=== PATIENT | female | born 1945 | race Caucasian/White ===

== ENCOUNTER → 2023-07-09 | Outpatient (CLI) | payer MEDICARE, SELFPAY ==
--- NOTE | 2023-07-09 18:30 | RAD_ITS ---
STUDY: X-RAY - CERVICAL SPINE REASON FOR EXAM: Female, 77 years old. PAIN TECHNIQUE: 3 view(s) of the cervical spine were obtained. COMPARISON: None FINDINGS: There are degenerative changes of the anterior atlantoaxial articulation. Normal odontoid process. Normal cervical lordosis. There is multi-level endplate spondylosis. There is multi-level degenerative disc disease with multilevel disc space narrowing. Multilevel bilateral apophyseal hypertrophy. The soft tissue structures are unremarkable. Possible osteopenia. RAD/Cerv Spine 2 or 3 Views IMPRESSION: Multilevel degenerative disease with no acute fracture or subluxation. Electronically Signed: Symone Rose MD at 1:07 EST ,
--- NOTE | 2023-07-09 18:30 | RAD_ITS ---
STUDY: X-RAY - LUMBAR SPINE REASON FOR EXAM: Female, 77 years old. PAIN TECHNIQUE: 2 view(s) of the lumbar spine were obtained. COMPARISON: None FINDINGS: Normal lumbar lordosis. There is no substantial scoliosis. There is a normal alignment of the vertebrae. Normal vertebral bodies and endplates. Normal disc space heights. The soft tissue structures are unremarkable. RAD/Lumbar Spine 2 or 3 Views IMPRESSION: No acute bony injury of the lumbar spine. Electronically Signed: Alex Driver DO at 22:24 EST ,
--- NOTE | 2023-07-09 18:30 | RAD_ITS ---
INDICATION: PAIN EXAMINATION/TECHNIQUE: X-RAY - XR Spine Thoracic 2 Views COMPARISON: FINDINGS: VERTEBRAE: Preserved vertebral body height. Mild degenerative spurring/bridging osteophytes throughout the mid thoracic levels. No fracture. No spondylolisthesis. Preservation of the normal thoracic kyphosis. No significant facet arthropathy. DISCS: Disc spaces are maintained. INCLUDED CHEST/ABDOMEN: No acute abnormalities. There is a right shoulder prosthesis. RAD/Thoracic Spine 3 Views IMPRESSION: Degenerative vertebral changes. Electronically Signed: Alex Driver DO at 22:33 EST ,
== END | disposition home or self-care (01) ==
PROVIDERS: PCP Nurse Practitioner Primary Care; Referring Provider Anesthesiology Pain Medicine; Visit Provider Anesthesiology Pain Medicine
DX: M50.30 Other cervical disc degeneration, unspecified cervical region (principal); M51.34 Other intervertebral disc degeneration, thoracic region; M51.37 Other intervertebral disc degeneration, lumbosacral region
CPT/HCPCS: 72040; 72072; 72100

== ENCOUNTER → 2023-10-14 | Outpatient (CLI) | payer MEDICARE, SELFPAY ==
--- OUTSIDE RECORDS SUMMARY | 2023-10-14 11:49 | XMS RPT_ITS | CCD ---
Author Name Unknown Address [address] [place] [address] Organization [facility] Care Team Providers Care Assistant Producer Name Role Phone JASWINDER CLINICAL EDUCATION SPECIALIST-GARLAND MAKER, NATHALIA S Primary Care Physicia n Castro PT, Angelina Unavailable Unavailable MERAZ CLINICAL EDUCATION SPECIALIST-GARLAND MAKER, ERROL Attending Unavailab le JASWINDER CLINICAL EDUCATION SPECIALIST-GARLAND MAKER, NATHALIA S Primary Care Unava ilable JENNY HERNANDEZ, DR PANIAGUA Attending Unavailable JASWINDER CLINICAL EDUCATION SPECIALIST-GARLAND MAKER, NATHALIA S Primary Care Unava ilable JASWINDER CLINICAL EDUCATION SPECIALIST-GARLAND MAKER, NATHALIA S Attending Unava ilable JASWINDER CLINICAL EDUCATION SPECIALIST-GARLAND MAKER, NATHALIA S Primary Care Unava ilable JASWINDER CLINICAL EDUCATION SPECIALIST-GARLAND MAKER, NATHALIA S Attending Unava ilable JASWINDER CLINICAL EDUCATION SPECIALIST-GARLAND MAKER, NATHALIA S Primary Care Unava ilable JASWINDER CLINICAL EDUCATION SPECIALIST-GARLAND MAKER, NATHALIA S Attending Unava ilable JASWINDER CLINICAL EDUCATION SPECIALIST-GARLAND MAKER, NATHALIA S Primary Care Unava ilable JASWINDER CLINICAL EDUCATION SPECIALIST-GARLAND MAKER, NATHALIA S Primary Care Unava ilable CORNELL CLINICAL EDUCATION SPECIALIST-GARLAND MAKER, GRACY Gonsales Attending Monserrat vailable JASWINDER CLINICAL EDUCATION SPECIALIST-GARLAND MAKER, NATHALIA S Primary Care Unava ilable LITO CLINICAL EDUCATION SPECIALIST-GARLAND MAKER, GRACIELA Santoyo Attending Unav ailable JASWINDER CLINICAL EDUCATION SPECIALIST-GARLAND MAKER, NATHALIA S Primary Care Unava ilable CORNELL CLINICAL EDUCATION SPECIALIST-GARLAND MAKER, GRACY Gonsales Attending Monserrat vailable Allergies Allergy Classification Reported Allergen(s) Allergy Type Date of Onset Reaction(s) Facility (12 sources) Erythromycin; Translations: [erythromycin] Drug Allergy [facility] (12 sources) Grass Allergy to substance Nasal congestion (finding) [facility] (11 sources) Ibuprofen; Translations: [ibuprofen] Drug Allergy [facility] (8 sources) pollen-tree Allergy to substance Typical [facility] Medications Current Medications Medication Drug Class(es) Dates Sig (Normalized) Sig (Original) [id number] 200 actuat albuterol 0.09 mg/actuat metered dose inhaler (12 sources) beta2-Adrenergic Agonist Start: 01-28-2023 take 2 puff(s) by inhalation every six hours as needed for wheezing ProAir HFA MDI (90 mcg/inh) inhalation aerosol 2 puff(s), Inhalation, q6h, PRN as needed for wheezing, filling in lieu of pcp, # 1 EA, 0 Refill(s), Pharmacy: [facility]/pharmacy #[id number], 162.6, cm, 12/12/22 9:04:00 EDT, Height, kg, 12/12/22 9:04:00 EDT, Dosing Weight Start Date: 01/28/23 Status: Ordered Completed/Discontinued Medications Medication Drug Class(es) Dates Sig (Normalized) Sig (Original) HYDROmorphone hydrochloride 4 mg oral tablet (11 sources) Opioid Agonist Start: 04-24-2023 HYDROmorphone 4 mg oral tablet Dose : 2 mg = 0.5 tab(s), Oral, q8h, PRN for pain, 0 Refill(s), 64.6 Start Date: 04/24/23 Status: Ordered Problems Active Problems Problem Classification Problem Date Documented Da te Episodic/Chronic Asthma (12 sources) Asthma 05-11-2017 Chronic Calculus of urinary tract (2 sources) Unspecified renal colic; Translations: [Unspecified renal colic] Onset: 09-18-2023 Episodic Deficiency and other anemia (12 sources) Anemia 05-13-2019 Episodic Diabetes mellitus without complication (14 sources) Type 2 diabetes mellitus; Translations: [Type 2 diabetes mellitus without complications] Onset: 07-30-2023 05-13-2019 Chronic Disorders of lipid metabolism (13 sources) Hyperlipidemia; Translations: [Hyperlipidemia, unspecified] 05-11-2017 Chronic E Codes: Fall (1 source) Fall; Translations: [Unspecified fall, initial encounter] Onset: 03-09-2022 Episodic Essential hypertension (13 sources) Hypertensive disorder; Translations: [Essential hypertension] 04-27-2021 Chronic Genitourinary symptoms and ill-defined conditions (14 sources) Urinary incontinence; Translations: [Unspecified urinary incontinence] Onset: 09-18-2023 04-19-2020 Chronic Glaucoma (12 sources) Glaucoma 05-20-2017 Chronic Mood disorders (12 sources) Depressive disorder 09-15-2020 Chronic Mycoses (2 sources) Onychomycosis of toenails 05-22-2023 Episodic Nausea and vomiting (1 source) Vomiting; Translations: [Vomiting, unspecified] Onset: 07-01-2021 Episodic Other connective tissue disease (12 sources) Muscle pain 01-17-2021 Episodic Other connective tissue disease (12 sources) Myofascial pain syndrome 04-28-2021 Episodic Other connective tissue disease (12 sources) Recurrent falls 09-15-2020 Episodic Other ear and sense organ disorders (5 sources) Impacted cerumen 02-20-2021 Episodic Other nervous system disorders (12 sources) Impairment of balance 09-15-2020 Episodic Other non-traumatic joint disorders (5 sources) Pain in elbow 12-27-2020 Episodic Peripheral and visceral atherosclerosis (12 sources) Peripheral vascular disease 09-21-2019 Chronic Residual codes; unclassified (12 sources) Chronic back pain 12-28-2020 Episodic Retinal detachments; defects; vascular occlusion; and retinopathy (12 sources) Age related macular degeneration 09-21-2019 Chronic Spondylosis; intervertebral disc disorders; other back problems (10 sources) 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-2021 Chronic Spondylosis; intervertebral disc disorders; other back problems (4 sources) Spinal stenosis of lumbar region 02-06-2023 Episodic Thyroid disorders (13 sources) Hypothyroidism; Translations: [Hypothyroidism, unspecified] 05-11-2017 Chronic Unclassified (12 sources) Basal cell carcinoma 05-13-2019 Unclassified (19 sources) Patient encounter status 04-27-2021 Past or Other Problems Problem Classification Problem Date Documented Da te Episodic/Chronic Fracture of upper limb (5 sources) Closed fracture proximal humerus, neck Onset: 08-26-2016 05-28-2017 Episodic Results Test Name Value Interpretation Reference Range Facil ity Vital Signs Date Time Vital Sign Value Performing Clinician Faci lity 03-09-2022 15:55-0400 Body temperature 98.78 [degF] CALI RICHARDS MD [facility] 03-09-2022 15:55-0400 Diastolic blood pressure 67 mm[Hg] CALI RICHARDS MD [facility] 03-09-2022 15:55-0400 Heart rate 63 /min CALI RICHARDS MD [facility] 03-09-2022 15:55-0400 Respiratory rate 16 /min CALI RICHARDS MD [facility] 03-09-2022 15:55-0400 Systolic blood pressure 125 mm[Hg] CALI RICHARDS MD [facility] 07-01-2021 20:38-0400 Diastolic blood pressure 78 mm[Hg] CALI RICHARDS MD [facility] 07-01-2021 20:38-0400 Heart rate 58 /min CALI RICHARDS MD [facility] 07-01-2021 20:38-0400 Respiratory rate 16 /min CALI RICHARDS MD [facility] 07-01-2021 20:38-0400 Systolic blood pressure 138 mm[Hg] CALI RICHARDS MD [facility] 07-01-2021 18:40-0400 Body temperature 97.88 [degF] CALI RICHARDS MD [facility] 07-01-2021 18:40-0400 Diastolic blood pressure 84 mm[Hg] CALI RICHARDS MD [facility] 07-01-2021 18:40-0400 Heart rate 64 /min CALI RICHARDS MD [facility] 07-01-2021 18:40-0400 Respiratory rate 16 /min CALI RICHARDS MD [facility] 07-01-2021 18:40-0400 Systolic blood pressure 151 mm[Hg] CALI RICHARDS MD [facility] Encounters Encounter Date Encounter Type Care Provider Facility Start: 09-18-2023 ambulatory NATHALIA SALMERON CLINICAL EDUCATION SPECIALIST-GARLAND MAKER Facility:B Start: 09-18-2023 End: 09-22-2023 Outreach Lab GRACIELA MORSE CLINICAL EDUCATION SPECIALIST-GARLAND MAKER [facility] Start: 07-30-2023 End: 08-04-2023 ambulatory NATHALIA S JASWINDER CLINICAL EDUCATION SPECIALIST-GARLAND MAKER Facility:B Start: 07-30-2023 End: 08-03-2023 Outreach Lab NATHALIA SAN CLINICAL EDUCATION SPECIALIST-GARLAND MAKER [facility] Start: 04-24-2023 End: 04-25-2023 ambulatory NATHALIA S JASWINDER CLINICAL EDUCATION SPECIALIST-GARLAND MAKER Facility:B Start: 04-24-2023 End: 04-24-2023 Patient encounter procedure GRACY CORNELL CLINICAL EDUCATION SPECIALIST-GARLAND MAKER [facility] Start: 04-03-2023 ambulatory NATHALIA S WITM ER CLINICAL EDUCATION SPECIALIST-GARLAND MAKER Facility:B Start: 02-06-2023 End: 02-07-[address] ARCELIA ALVARADO MD Facility:A Start: 02-06-2023 End: 02-06-[address] ARCELIA ALVARADO MD [facility] Start: 12-12-2022 End: 12-13-2022 ambulatory ERROL MERAZ CLINICAL EDUCATION SPECIALIST-GARLAND MAKER Facility:A Start: 12-12-2022 End: 12-12-2022 Patient encounter procedure ERROL MERAZ CLINICAL EDUCATION SPECIALIST-GARLAND MAKER [facility] Start: 11-23-2022 End: 11-24-2022 ambulatory NATHALIA SAN CLINICAL EDUCATION SPECIALIST-GARLAND MAKER Facility:B Start: 11-23-2022 End: 11-23-2022 Patient encounter procedure NATHALIA SAN CLINICAL EDUCATION SPECIALIST-GARLAND MAKER [facility] Start: 11-20-2022 End: 11-21-2022 ambulatory NATHALIA SAN CLINICAL EDUCATION SPECIALIST-GARLAND MAKER Facility:B Start: 11-20-2022 End: 11-20-2022 Patient encounter procedure NATHALIA SAN CLINICAL EDUCATION SPECIALIST-GARLAND MAKER [facility] Start: 03-28-2022 End: 03-28-[address] ARCELIA ALVARADO MD [facility] Start: 03-09-2022 End: 03-09-2022 Emergency department patient visit CALI RICHARDS MD [facility] Start: 01-25-2022 End: 01-25-2022 Patient encounter procedure ELMER FERNANDEZ CLINICAL EDUCATION SPECIALIST-BODY PIERCER [facility] Start: 07-01-2021 End: 07-01-2021 Emergency department patient visit CALI RICHARDS MD [facility] Start: 06-21-2021 End: 06-21-[address] ARCELIA ALVARADO MD [facility] Procedures Date Procedure Procedure Detail Performing Clinician Start: 11-20-2018 Injection of trigger points DR ARCELIA ALVARADO MD Start: 04-17-[address] eroid injection DR ARCELIA ALVARADO MD Start: 03-03-[address] ARCELIA ALVARADO MD Immunizations Immunization Date Immunization Notes Care Provider Fa [facility] 05-22-2023 influenza, high dose seasonal, preservative-free; Translations: [Fluad Quadrivalent PF ] NATHALIA SAN CLINICAL EDUCATION SPECIALIST-GARLAND MAKER [facility] 02-16-2022 SARS-CoV-2 mRNA (anggkzofivz-rhkb-hwnbnf e) vaccine NATHALIA SAN CLINICAL EDUCATION SPECIALIST-GARLAND MAKER [facility] 06-08-2021 influenza virus vacc ine, unspecified formulation NATHALIA SAN CLINICAL EDUCATION SPECIALIST-GARLAND MAKER [facility] 06-08-2021 SARS-CoV-2 mRNA (tozinameran) vaccine NATHALIA SAN CLINICAL EDUCATION SPECIALIST-GARLAND MAKER [facility] 11-30-2020 SARS-CoV-2 mRNA (tozinameran) vaccine NATHALIA SAN CLINICAL EDUCATION SPECIALIST-GARLAND MAKER [facility] 11-08-2020 SARS-CoV-2 mRNA (tozinameran) vaccine NATHALIA SAN CLINICAL EDUCATION SPECIALIST-GARLAND MAKER [facility] 09-05-2019 influenza virus vacc ine, unspecified formulation DR ARCELIA ALVARADO MD [facility] 07-27-2018 influenza virus vacc ine, unspecified formulation DR ARCELIA ALVARADO MD [facility] 05-01-2017 influenza virus vacc ine, unspecified formulation DR ARCELIA ALVARADO MD [facility] 04-26-2017 influenza virus vacc ine, unspecified formulation DR ARCELIA ALVARADO MD [facility] 05-02-2016 influenza virus vacc ine, unspecified formulation DR ARCELIA ALVARADO MD [facility] 08-01-2015 pneumococcal conjuga te vaccine, [address] ARCELIA ALVARADO MD [facility] 06-25-2015 influenza virus vacc ine, unspecified formulation DR ARCELIA ALVARADO MD [facility] 06-28-2014 influenza virus vacc ine, unspecified formulation DR ARCELIA ALVARADO MD [facility] 06-15-2013 pneumococcal polysaccharide vaccine, [address] ARCELIA ALVARADO MD [facility] 06-05-2012 influenza virus vacc ine, unspecified formulation DR ARCELIA ALVARADO MD [facility] 01-28-2009 zoster vaccine, live DR ARCELIA ALVARADO MD [facility] 08-20-2007 tetanus toxoid, redu [place] diphtheria toxoid, and acellular pertussis vaccine, adsorbed DR ARCELIA ALVARADO MD [facility] Payers Date Payer Category Payer Unknown [id number] 1945 Unknown [id number] [id number] [id number] 1945 Unknown [id number] 2.16.8 [id number] 1945 Unknown [id number] 2.16.8 [id number] 1945 Unknown [id number] 2.16.8 [id number] 1945 Unknown [id number] 2.16.8 [id number] 1945 Unknown [id number] 2.16.8 [id number] 1943 Unknown [id number] 2.16.8 [id number] 1945 Unknown [id number] 2.16.8 [id number] Social History Date Type Detail Facility Start: 11-20-2018 Never smoked t obacco ([facility]) [facility] Sex Assigned At Female [facility] Functional Status Date Assessment Result Facility 03-09-2022 Functional Status Ambulation in [facility] Mental Status Date Assessment Result Facility 03-09-2022 Mental Status Orientation Oriented x 4 [facility] Clinical Notes 07-01-2021 to 09-20-2023 LaboratoryRadiologyLaboratoryRadiologyRadiologyRadiologyRadiology Note Date & Type Note Facility 09-20-2023 Note . MICRO - Microbiology PROCEDURE: Urine Culture [*1] SOURCE: Urine, Clean Catch BODY SITE: COLLECTED DATE/TIME: 09/18/2023 16:49 EST RECEIVED DATE/TIME: 09/18/2023 19:33 EST START DATE/TIME: 09/18/2023 19:33 EST FREE TEXT SOURCE: PRELIMINARY REPORTS Preliminary Report [] Verified Date/Time/Personnel: 09/20/2023 08:30 EST >100,000 cfu/ml Escherichia coli CADY to follow Preliminary Report [] Verified Date/Time/Personnel: 09/19/2023 10:48 EST Culture results pending. Performing Locations *1: This test was performed at: [facility], [address] [place] [address], [facility] , [facility] ([place]) 11-23-2022 Note ORIGINAL EXAMINATION: BONE DENSITOMETRY 11/23/2022 1:51 pm TECHNIQUE: A bone density dual x-ray absorptiometry (DEXA) scan was performed of the lumbar spine and left hip. COMPARISON: 05/09/2020. HISTORY: ORDERING SYSTEM PROVIDED HISTORY: Reason for Exam: Osteoporosis Screening FINDINGS: T Score Left Femoral Neck: -2.1 Left Femoral Neck: 0.614 (g/cm2) T Score Left Hip: -1.7 Left Hip: 0.737 (g/cm2) T Score Lumbar Spine: -1.1 Lumbar Spine: 0.922 (g/cmd2) BMD change from previous hip:-6.9% BMD change from previous lumbar Spine:-6.3% FRAX: 10 year fracture risk assessment Major osteoporotic fracture: 23% Hip fracture: 7.6% IMPRESSION: Osteopenia by WHO criteria. *By the World Health Organization criteria: (Comparing with young normal sex matched population) - Normal: T-score at or above -1 SD (standard deviation) - Osteopenia: T-score between -1 and -2.5 SD - Osteoporosis: T-score at or below -2.5 SD Interpreted by: Robert Delgado DO Preliminary Report By: Robert Delgado DO Electronically signed By Robert Delgado DO Dictated Date: 11/23/2022 2:00:48 PM Prelim Date: 11/23/2022 2:02:30 PM Sign Date: 11/23/2022 2:02:30 PM Ordering Provider: [facility] 11-23-2022 Note ORIGINAL EXAMINATION: BONE DENSITOMETRY 11/23/2022 1:51 pm TECHNIQUE: A bone density dual x-ray absorptiometry (DEXA) scan was performed of the lumbar spine and left hip. COMPARISON: 05/09/2020. HISTORY: ORDERING SYSTEM PROVIDED HISTORY: Reason for Exam: Osteoporosis Screening FINDINGS: T Score Left Femoral Neck: -2.1 Left Femoral Neck: 0.614 (g/cm2) T Score Left Hip: -1.7 Left Hip: 0.737 (g/cm2) T Score Lumbar Spine: -1.1 Lumbar Spine: 0.922 (g/cmd2) BMD change from previous hip:-6.9% BMD change from previous lumbar Spine:-6.3% FRAX: 10 year fracture risk assessment Major osteoporotic fracture: 23% Hip fracture: 7.6% IMPRESSION: Osteopenia by WHO criteria. *By the World Health Organization criteria: (Comparing with young normal sex matched population) - Normal: T-score at or above -1 SD (standard deviation) - Osteopenia: T-score between -1 and -2.5 SD - Osteoporosis: T-score at or below -2.5 SD Interpreted by: Robert Delgado DO Preliminary Report By: Robert Delgado DO Electronically signed By Robert Delgado DO Dictated Date: 11/23/2022 2:00:48 PM Prelim Date: 11/23/2022 2:02:30 PM Sign Date: 11/23/2022 2:02:30 PM Ordering Provider: NATHALIA [facility] 03-09-2022 Hospital Discharge instructions Patient Education 03/09/2022 18:24:14 Fall, Uncertain Cause Fall with Uncertain Cause You have had a fall today. But the cause of your fall is not certain. Falls can happen due to slipping, tripping or losing your balance. A fall can also happen from a fainting spell or seizure. While a fall can happen for a simple reason (tripping over something), falls in elderly people are often caused by a combination of things: Age-related decline in function with worsening balance, stability, vision, and muscle strength Chronic illness, such as heart arrhythmias, heart valve disease, vascular disease, COPD, diabetes, strokes, or arthritis Shoes that do not give much support and make you prone to slip or slide Anemia or low blood pressure Effects or side effects of medicines Dehydration or recent use of alcohol Environmental hazards, such as uneven or slippery ground, unfamiliar place, obstacles, uneven surfaces, or slippery ground Situational factors (related to the activity being done, such as rushing to the bathroom) Because the cause of your fall today is not certain, it is possible that a fainting spell or seizure was the cause. This means that it could happen again, without warning. If you fall again, without a cause, then you should return to this facility promptly to have further tests. Otherwise, follow up with your healthcare provider as explained below. It is normal to feel sore and tight in your muscles and back the next day, and not just the muscles you initially injured. Remember, all the parts of your body are connected, so while initially one area hurts, the next day another may hurt. Also, when you injure yourself, it causes inflammation, which then causes the muscles to tighten up and hurt more. After the initial worsening, it should gradually improve over the next few days. However, more severe pain should be reported. Even without a definite head injury, you can still get a concussion. Concussions and even bleeding can still happen, especially if you have had a recent injury or take blood thinner medicine. It is not unusual to have a mild headache and feel tired and even nauseous or dizzy. Home care Rest today and resume your normal activities as soon as you are feeling back to normal. It is best to remain with someone who can check on you for the next 24 hours to watch for another episode of falling. If you were injured during the fall, follow the advice from your healthcare provider regarding care of your injury. If you become lightheaded or dizzy, lie down right away or sit and lean forward with your head down. As a precaution, don't drive a car or operate dangerous equipment, don't take a bath alone (use a shower instead), and don't swim alone until you see your healthcare provider. A condition causing fainting or seizures must be ruled out before resuming these activities. You may use acetaminophen or ibuprofen to control pain, unless another pain medicine was prescribed. If you have chronic liver or kidney disease or ever had a stomach ulcer or gastrointestinal bleeding, talk with your healthcare provider before using these medicines. Keep your appointments for any further testing that may have been scheduled for you. Follow-up care Follow up with your healthcare provider, or as advised. If X-rays or CT scan were done, you will be notified if there is a change in the reading, especially if it affects treatment. Call 911 Call 911 if any of these happen: Trouble breathing Confused or difficulty arousing Fainting or loss of consciousness Rapid or very slow heart rate Seizure Difficulty with speech or vision, weakness of an arm or leg Difficulty walking or talking, loss of balance, numbness or weakness in one side of your body, facial droop When to seek medical advice Call your healthcare provider right away if any of these happen: Another unexplained fall Dizziness Severe headache Nausea and vomiting Blood in vomit, stools (black or red color) [id number] [employer]. [address] [place] [address]. All rights reserved. This information is not intended as a substitute for professional medical care. Always follow your healthcare professional's instructions. Follow Up Care 03/09/2022 15:37:37 With:NATHALIA SAN APRN-GARLAND MAKER Address: [address] [place] [address] [place] [address]- [phone] When:2-4 days [facility] 03-09-2022 Emergency department Discharge summary Discharge Instructions Thank you for allowing [facility] to assist you with your healthcare needs. The following is important discharge information regarding your hospital visit. Diagnosis from Today's Visit Fall Fall What to Do Next Instructions from Your Care Team No qualifying data available. Post Acute Orders No qualifying data available. You Need to Schedule the Following Appointments Follow Up with NATHALIA SAN APRN-[facility] When Within 2-4 days Where: [address] [facility] [place] [address]- [phone] Allergies Grass (Nasal congestion) erythromycin ibuprofen Medications Please ask your primary doctor or pharmacist before taking any other medication not listed, including over the counter drugs, herbal medications, vitamins and or supplements as they may interact with your home medications. What How Much When Why Instructions Last Dose Unchanged albuterol (ProAir HFA MDI (90 mcg/ inh) inhalation aerosol) 2 puff(s) by inhalation Every 6 hours as needed for as needed for wheezing Unchanged citalopram (citalopram 20 mg oral tablet) 1 tab(s) by mouth Once a day Duration: 90 Days Unchanged HYDROmorphone (HYDROmorphone 4 mg oral tablet) 1 tab(s) by mouth Every 12 hours Spinal stenosis Duration: 30 Days fill date 2021. Unchanged levothyroxine (Synthroid 50 mcg (0.05 mg) oral tablet) 1 tab(s) by mouth Once a day Duration: 90 Days Unchanged melatonin (melatonin 3 mg oral tablet) 1 tab(s) by mouth Daily at bedtime as needed for Sleep Unchanged metFORMIN (metFORMIN 500 mg oral tablet (IR)) See instructions TAKE 2 TABLETS DAILY Unchanged mometasone (Asmanex HFA 100 mcg/ inh inhalation aerosol) 2 puff(s) by inhalation Two (2) times a day Unchanged naproxen (Aleve 220 mg oral tablet) 1 cap by mouth Every 8 hours as needed for as needed for pain Unchanged oxybutynin (oxybutynin 5 mg/ 24 hours oral tablet, extended release) 1 tab(s) by mouth Once a day Duration: 90 Days Unchanged verapamil (verapamil 100 mg/ 24 hours oral capsule, extended release) 1 cap by mouth Daily at bedtime Please take this list to your next doctor s visit. Bring all medications you take, including over the counter medications, herbals and other supplements with you to your doctor s visit. Patients and families are reminded to discard old lists and to update any records with all medication providers or retail pharmacies. Education Materials Fall with Uncertain Cause You have had a fall today. But the cause of your fall is not certain. Falls can happen due to slipping, tripping or losing your balance. A fall can also happen from a fainting spell or seizure. While a fall can happen for a simple reason (tripping over something), falls in elderly people are often caused by a combination of things: Age-related decline in function with worsening balance, stability, vision, and muscle strength Chronic illness, such as heart arrhythmias, heart valve disease, vascular disease, COPD, diabetes, strokes, or arthritis Shoes that do not give much support and make you prone to slip or slide Anemia or low blood pressure Effects or side effects of medicines Dehydration or recent use of alcohol Environmental hazards, such as uneven or slippery ground, unfamiliar place, obstacles, uneven surfaces, or slippery ground Situational factors (related to the activity being done, such as rushing to the bathroom) Because the cause of your fall today is not certain, it is possible that a fainting spell or seizure was the cause. This means that it could happen again, without warning. If you fall again, without a cause, then you should return to this facility promptly to have further tests. Otherwise, follow up with your healthcare provider as explained below. It is normal to feel sore and tight in your muscles and back the next day, and not just the muscles you initially injured. Remember, all the parts of your body are connected, so while initially one area hurts, the next day another may hurt. Also, when you injure yourself, it causes inflammation, which then causes the muscles to tighten up and hurt more. After the initial worsening, it should gradually improve over the next few days. However, more severe pain should be reported. Even without a definite head injury, you can still get a concussion. Concussions and even bleeding can still happen, especially if you have had a recent injury or take blood thinner medicine. It is not unusual to have a mild headache and feel tired and even nauseous or dizzy. Home care Rest today and resume your normal activities as soon as you are feeling back to normal. It is best to remain with someone who can check on you for the next 24 hours to watch for another episode of falling. If you were injured during the fall, follow the advice from your healthcare provider regarding care of your injury. If you become lightheaded or dizzy, lie down right away or sit and lean forward with your head down. As a precaution, don't drive a car or operate dangerous equipment, don't take a bath alone (use a shower instead), and don't swim alone until you see your healthcare provider. A condition causing fainting or seizures must be ruled out before resuming these activities. You may use acetaminophen or ibuprofen to control pain, unless another pain medicine was prescribed. If you have chronic liver or kidney disease or ever had a stomach ulcer or gastrointestinal bleeding, talk with your healthcare provider before using these medicines. Keep your appointments for any further testing that may have been scheduled for you. Follow-up care Follow up with your healthcare provider, or as advised. If X-rays or CT scan were done, you will be notified if there is a change in the reading, especially if it affects treatment. Call 911 Call 911 if any of these happen: Trouble breathing Confused or difficulty arousing Fainting or loss of consciousness Rapid or very slow heart rate Seizure Difficulty with speech or vision, weakness of an arm or leg Difficulty walking or talking, loss of balance, numbness or weakness in one side of your body, facial droop When to seek medical advice Call your healthcare provider right away if any of these happen: Another unexplained fall Dizziness Severe headache Nausea and vomiting Blood in vomit, stools (black or red color) 7628-7891 [employer]. [address] [place] [address]. All rights reserved. This information is not intended as a substitute for professional medical care. Always follow your healthcare professional's instructions. Additional Information VACCINATE! IT SAVES LIVES! Members of the community who have not yet received the COVID-19 vaccine and would like to receive it can visit one of [facility] vaccine clinics. There are many vaccine clinic locations within the [facility]. For locations and available times, please visit [email or web address]. It is important to note that some COVID mobile vaccine clinics are held outdoors and may be canceled in rainy or stormy conditions. To learn more about pediatric vaccinations (ages 5-11), we invite you to visit the [facility] webpage. [email or web address] To learn more about the COVID-19 vaccine, we invite you to visit the [employer] website for a list of frequently asked questions. [email or web address] [facility] Patient Portal Access Instructions: Stay connected with your healthcare team and access your personal medical information anytime with the [facility] Patient Portal. If you would like a full copy of your medical records please contact the [facility] Medical Records Department Saturday through Saturday between 8a.m. and 4:30p.m. Please follow the directions below to access the portal: 1.Access the email account you provided upon registration to the [facility].2.Look for an invitation email from [facility].3.Open the email and access the invitation link: Accept Invitation to [facility]4.Fill in the required thomas to create your account. Sign into www.[email or web address] with your username and password that you created in the above steps to stay up to date. You can then view a summary of results, a summary of your visits, and the ability to download your summaries to your computer or send the information securely to a physician. Remember that your healthcare information is confidential, so carefully consider who you will allow to register on the [facility] Patient Portal for access to your information. You can also access the [facility] Patient Portal on the [employer] shira. Simply click on Health Records under Health Data and then click on the [facility] logo. HOW TO SAFELY DISPOSE OF PRESCRIPTION MEDICATIONS Please use one of the following methods to safely dispose of your unused medications. 1.Use a drug disposal kit: the drug disposal pouch allows you to safely discard your old and unused drugs. Ask your nurse to give you one when you are discharged.2.Visit a local take-back location: Many local pharmacies and police departments have programs that collect old and unwanted prescription drugs. Call your local pharmacy or go to http://bit.ly/9T1Ad0v to find one close to you.3.Make use of household items: Use cat litter or old coffee grounds to dispose medications if other options are not available. Mix your drugs with these household products, seal them in an airtight container and throw it into the garbage. Call [facility]: [phone] to be sure your drugs can be disposed of in this way. Some medicines may require a different approach.4.Never flush your medications down the toilet. IF YOU HAVE BEEN PRESCRIBED AN OPIOIDS FOR PAIN If you have been prescribed an opioid (such as hydrocodone, oxycodone or morphine), it is critical to understand the possible side effects and risks of opioid pain medications. Even when taken as directed, opioids can have several side effects including: Tolerance, meaning you might need to take more of a medication for the same pain relief. Nausea, vomiting and/or constipation. Sleepiness, dizziness, dry mouth, confusion, depression or itching. Physical dependence, meaning you have withdrawal symptoms when a medication is stopped ? this can develop within a few days. KNOW YOUR RESPONSIBILITIES It is important to know exactly how much and how often to take the opioid pain medications you are prescribed. Never take opioids in higher amounts or more often than prescribed. Do not combine opioids with alcohol or other drugs that cause drowsiness, such as benzodiazepines, also known as benzos, including diazepam and alprazolam, muscle relaxants or sleep aids. Never sell or share prescription opioids. This is illegal. Store opioids in a secure place and out of reach of others (including children, family, friends and visitors). The last page(s) of this document has been signed and retained as a CHART COPY Signatures Patient Education Materials Fall, Uncertain Cause Medication Leaflets My discharge plan and instructions have been reviewed and explained to me and IMARCOS CAROL J understand my current condition and have read and understand these discharge instructions. I have received a written copy of the plan/instructions. If I have questions, I am aware that I should contact my doctor. Patient/Anesthesia Director Signature: Date/Time: Relationship to Patient: Witness Name/Signature: Date/Time: [facility] 03-09-2022 Note ORIGINAL EXAMINATION: CT OF THE HEAD WITHOUT CONTRAST 03/09/2022 4:36 pm TECHNIQUE: CT of the head was performed without the administration of intravenous contrast. Automated exposure control, iterative reconstruction, and/or weight based adjustment of the mA/kV was utilized to reduce the radiation dose to as low as reasonably achievable. COMPARISON: CT head 05/12/2017 HISTORY: ORDERING SYSTEM PROVIDED HISTORY: Reason for Exam: Fall FINDINGS: BRAIN/VENTRICLES: There is no acute intracranial hemorrhage, mass effect or midline shift. No abnormal extra-axial fluid collection. The martinez-white differentiation is maintained without evidence of an acute infarct. There is no evidence of hydrocephalus. 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 Mild to moderate generalized parenchymal volume loss. Moderate supratentorial white matter hypodensities are nonspecific but statistically represent chronic microvascular angiopathy. ORBITS: The visualized portion of the orbits demonstrate no acute abnormality. SINUSES: Air-fluid level in the sphenoid sinuses otherwise the paranasal sinuses and mastoid air cells are clear. SOFT TISSUES/SKULL: Minimal left high parietal soft tissue swelling. The visualized osseous structures are intact. IMPRESSION: No acute intracranial hemorrhage or acute large vessel territory infarct. Minimal left high parietal soft tissue swelling. Moderate chronic microvascular angiopathy. Air-fluid levels in the sphenoid sinuses could reflect acute sinusitis in the appropriate clinical setting. I have personally reviewed the images of this examination and agree with the resident's findings and interpretation. RECOMMENDATIONS: Unavailable Interpreted by: Josef Norman Preliminary Report By: Diamante Morrissey Electronically signed By Josef Norman Dictated Date: 03/09/2022 4:48:38 PM Prelim Date: 03/09/2022 4:54:07 PM Sign Date: 03/09/2022 4:58:29 PM Ordering Provider: [facility] 03-09-2022 Note ORIGINAL EXAMINATION: CT OF THE CERVICAL SPINE WITHOUT CONTRAST 03/09/2022 4:35 pm TECHNIQUE: CT of the cervical spine was performed without the administration of intravenous contrast. Multiplanar reformatted images are provided for review. Automated exposure control, iterative reconstruction, and/or weight based adjustment of the mA/kV was utilized to reduce the radiation dose to as low as reasonably achievable. COMPARISON: Chest x-ray 09/03/2020, CT head 05/12/2017 HISTORY: ORDERING SYSTEM PROVIDED HISTORY: Reason for Exam: Fall FINDINGS: BONES/ALIGNMENT: There is no acute fracture or traumatic malalignment. The bones are diffusely demineralized. The facet joints are appropriately aligned. DEGENERATIVE CHANGES: Mild multilevel degenerative changes. No severe bony foraminal or bony spinal canal stenosis. SOFT TISSUES: There is no prevertebral soft tissue swelling. Other: The included lung apices are clear. The upper airway is patent. The visualized thyroid is unremarkable. IMPRESSION: No acute traumatic abnormality of the cervical spine. I have personally reviewed the images of this examination and agree with the resident's findings and interpretation. RECOMMENDATIONS: Unavailable Interpreted by: Josef Norman Preliminary Report By: Diamante Morrissey Electronically signed By Josef Norman Dictated Date: 03/09/2022 4:42:49 PM Prelim Date: 03/09/2022 4:48:30 PM Sign Date: 03/09/2022 4:51:24 PM Ordering Provider: [facility] 03-09-2022 Note ORIGINAL EXAMINATION: ONE XRAY VIEW OF THE PELVIS 03/09/2022 4:34 pm COMPARISON: X-ray pelvis and left hip 01/26/2021 HISTORY: ORDERING SYSTEM PROVIDED HISTORY: Reason for Exam: Fall FINDINGS: No acute fracture or dislocation. The pelvic ring is intact. Mild degenerative changes of the lower lumbar spine. Degenerative changes of the bilateral hips. Small calcifications to the right of the L4-L5 levels, not significantly changed from the comparison study. IMPRESSION: No acute osseous abnormality. I have personally reviewed the images of this examination and agree with the resident's findings and interpretation. Interpreted by: Josef Norman Preliminary Report By: Diamante Morrissey Electronically signed By Josef Norman Dictated Date: 03/09/2022 4:41:20 PM Prelim Date: 03/09/2022 4:42:42 PM Sign Date: 03/09/2022 4:49:56 PM Ordering Provider: [facility] 03-09-2022 Note ORIGINAL EXAMINATION: ONE XRAY VIEW OF THE CHEST 03/09/2022 4:33 pm COMPARISON: Chest x-ray 09/03/2020 HISTORY: ORDERING SYSTEM PROVIDED HISTORY: Reason for Exam: chest pain FINDINGS: The cardiomediastinal silhouette is normal in size. No focal consolidation, vascular congestion, pleural effusion or pneumothorax. Degenerative changes of the left shoulder. Reverse right shoulder arthroplasty. IMPRESSION: No focal solid lesion or pleural effusion. I have personally reviewed the images of this examination and agree with the resident's findings and interpretation. Interpreted by: Josef Norman Preliminary Report By: Diamante Morrissey Electronically signed By Josef Norman Dictated Date: 03/09/2022 4:40:24 PM Prelim Date: 03/09/2022 4:41:14 PM Sign Date: 03/09/2022 4:48:47 PM [facility] Note ORIGINAL EXAMINATION: CT OF THE HEAD WITHOUT CONTRAST 03/09/2022 4:36 pm TECHNIQUE: CT of the head was performed without the administration of intravenous contrast. Automated exposure control, iterative reconstruction, and/or weight based adjustment of the mA/kV was utilized to reduce the radiation dose to as low as reasonably achievable. COMPARISON: CT head 05/12/2017 HISTORY: ORDERING SYSTEM PROVIDED HISTORY: Reason for Exam: Fall FINDINGS: BRAIN/VENTRICLES: There is no acute intracranial hemorrhage, mass effect or midline shift. No abnormal extra-axial fluid collection. The martinez-white differentiation is maintained without evidence of an acute infarct. There is no evidence of hydrocephalus. 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 Mild to moderate generalized parenchymal volume loss. Moderate supratentorial white matter hypodensities are nonspecific but statistically represent chronic microvascular angiopathy. ORBITS: The visualized portion of the orbits demonstrate no acute abnormality. SINUSES: Air-fluid level in the sphenoid sinuses otherwise the paranasal sinuses and mastoid air cells are clear. SOFT TISSUES/SKULL: Minimal left high parietal soft tissue swelling. The visualized osseous structures are intact. IMPRESSION: No acute intracranial hemorrhage or acute large vessel territory infarct. Minimal left high parietal soft tissue swelling. Moderate chronic microvascular angiopathy. Air-fluid levels in the sphenoid sinuses could reflect acute sinusitis in the appropriate clinical setting. I have personally reviewed the images of this examination and agree with the resident's findings and interpretation. RECOMMENDATIONS: Unavailable Interpreted by: Josef Norman Preliminary Report By: Diamante Morrissey Electronically signed By Josef Norman Dictated Date: 03/09/2022 4:48:38 PM Prelim Date: 03/09/2022 4:54:07 PM Sign Date: 03/09/2022 4:58:29 PM Ordering Provider: [facility] 03-09-2022 Note ORIGINAL EXAMINATION: CT OF THE CERVICAL SPINE WITHOUT CONTRAST 03/09/2022 4:35 pm TECHNIQUE: CT of the cervical spine was performed without the administration of intravenous contrast. Multiplanar reformatted images are provided for review. Automated exposure control, iterative reconstruction, and/or weight based adjustment of the mA/kV was utilized to reduce the radiation dose to as low as reasonably achievable. COMPARISON: Chest x-ray 09/03/2020, CT head 05/12/2017 HISTORY: ORDERING SYSTEM PROVIDED HISTORY: Reason for Exam: Fall FINDINGS: BONES/ALIGNMENT: There is no acute fracture or traumatic malalignment. The bones are diffusely demineralized. The facet joints are appropriately aligned. DEGENERATIVE CHANGES: Mild multilevel degenerative changes. No severe bony foraminal or bony spinal canal stenosis. SOFT TISSUES: There is no prevertebral soft tissue swelling. Other: The included lung apices are clear. The upper airway is patent. The visualized thyroid is unremarkable. IMPRESSION: No acute traumatic abnormality of the cervical spine. I have personally reviewed the images of this examination and agree with the resident's findings and interpretation. RECOMMENDATIONS: Unavailable Interpreted by: Josef Norman Preliminary Report By: Diamante Morrissey Electronically signed By Josef Norman Dictated Date: 03/09/2022 4:42:49 PM Prelim Date: 03/09/2022 4:48:30 PM Sign Date: 03/09/2022 4:51:24 PM Ordering Provider: [facility] 03-09-2022 Note ORIGINAL EXAMINATION: ONE XRAY VIEW OF THE PELVIS 03/09/2022 4:34 pm COMPARISON: X-ray pelvis and left hip 01/26/2021 HISTORY: ORDERING SYSTEM PROVIDED HISTORY: Reason for Exam: Fall FINDINGS: No acute fracture or dislocation. The pelvic ring is intact. Mild degenerative changes of the lower lumbar spine. Degenerative changes of the bilateral hips. Small calcifications to the right of the L4-L5 levels, not significantly changed from the comparison study. IMPRESSION: No acute osseous abnormality. I have personally reviewed the images of this examination and agree with the resident's findings and interpretation. Interpreted by: Josef Norman Preliminary Report By: Diamante Morrissey Electronically signed By Josef Norman Dictated Date: 03/09/2022 4:41:20 PM Prelim Date: 03/09/2022 4:42:42 PM Sign Date: 03/09/2022 4:49:56 PM Ordering Provider: [facility] 03-09-2022 Note ORIGINAL EXAMINATION: ONE XRAY VIEW OF THE CHEST 03/09/2022 4:33 pm COMPARISON: Chest x-ray 09/03/2020 HISTORY: ORDERING SYSTEM PROVIDED HISTORY: Reason for Exam: chest pain FINDINGS: The cardiomediastinal silhouette is normal in size. No focal consolidation, vascular congestion, pleural effusion or pneumothorax. Degenerative changes of the left shoulder. Reverse right shoulder arthroplasty. IMPRESSION: No focal solid lesion or pleural effusion. I have personally reviewed the images of this examination and agree with the resident's findings and interpretation. Interpreted by: Josef Norman Preliminary Report By: Diamante Morrissey Electronically signed By Josef Norman Dictated Date: 03/09/2022 4:40:24 PM Prelim Date: 03/09/2022 4:41:14 PM Sign Date: 03/09/2022 4:48:47 PM Ordering Provider: [facility] 07-01-2021 Hospital Discharge instructions Patient Education 07/01/2021 20:35:43 Vomiting (Adult) Vomiting (Adult) Vomiting is a common symptom that may be due to different causes. These include gastroenteritis ( stomach flu ), food poisoning and gastritis. There are other more serious causes of vomiting which may be hard to diagnose early in the illness. Therefore, it is important to watch for the warning signs listed below. The main danger from repeated vomiting is dehydration. This is due to excess loss of water and minerals from the body. When this occurs, your body fluids must be replaced. Home care If symptoms are severe, rest at home for the next 24 hours. Because your symptoms may be from an infection, wash your hands often and well. If soap and water are not available, use alcohol-based senior asic design engineer to keep from spreading the infection to others. Wash your hands for at least 20 seconds. Humming the happy birthday song twice while you wash is an easy way to make sure you've washed for 20 seconds. Wash your hands after using the toilet, before and after preparing food, before eating food, after changing a diaper, cleaning a wound, caring for a sick person, and blowing your nose, coughing, or sneezing. You should also wash your hands after caring for someone who is sick, touching pet food, or treats, and touching an animal, or animal waste. You may use acetaminophen or NSAID medicines like ibuprofen or naproxen to control fever, unless another medicine was prescribed. If you have chronic liver or kidney disease or ever had a stomach ulcer or gastrointestinal bleeding, talk with your doctor before using these medicines. Aspirin should never be used in anyone under 18 years of age who is ill with a fever. It may cause severe liver damage. Don't use NSAID medicines if you are already taking one for another condition (like arthritis) or are on aspirin (such as for heart disease, or after a stroke) Don't use tobacco and or drink alcohol, which may worsen your symptoms. If medicines for vomiting were prescribed, take as directed. Once vomiting stops, then follow these guidelines: During the first 12 to 24 hours follow the diet below: Fruit juices. Apple, grape juice, clear fruit drinks, and electrolyte replacement drinks. Beverages. Soft drinks without caffeine; mineral water (plain or flavored), decaffeinated tea and coffee. Soups. Clear broth and bouillon Desserts. Plain gelatin, ice pops, and fruit juice bars. As you feel better, you may add 6 to 8 ounces of yogurt per day. During the next 24 hours you may add the following to the above: Hot cereal, plain toast, bread, rolls, crackers Plain noodles, rice, mashed potatoes, chicken noodle or rice soup Unsweetened canned fruit such as applesauce, bananas (avoid pineapple and citrus) Limit caffeine and chocolate. No spices or seasonings except salt. During the next 24 hours: Gradually resume a normal diet, as you feel better and your symptoms lessen. Follow-up care Follow up with your healthcare provider, or as advised. When to seek medical advice Call your healthcare provider right away if any of these occur: Constant right-sided lower belly pain or increasing general belly pain Continued vomiting (unable to keep liquids down) for 24 hours Vomiting blood or coffee grounds Swollen belly Frequent diarrhea (more than 5 times a day); blood (red or black color) or mucus in diarrhea Reduced urine output or extreme thirst Weakness, dizziness or fainting Unusually drowsy or confused Fever of 100.4 F (38 C) oral or higher, or as directed Yellow color of the eyes or skin [id number] [employer]. [address] [place] [address]. All rights reserved. This information is not intended as a substitute for professional medical care. Always follow your healthcare professional's instructions. Follow Up Care 07/01/2021 18:29:42 With:NATHALIA SAN Address: [address] [place] [address] [place] [address]- [phone] When:2-4 days [facility] Evaluation + Plan note Future Appointments Appointment Date:10/25/2021 10:00:00 AM Scheduled Provider:NATHALIA SAN Location:[facility] Appointment Type:PC OV Future Scheduled TestsThyroid Stimulating Hormone 01/07/21A1C Hemoglobin 01/07/21Complete Blood Count 01/07/21Lipid Profile 01/07/21Complete Metabolic Panel 01/07/21XR Elbow Minimum 3 Views Right 12/27/20 [facility] Evaluation + Plan note Future Appointments Appointment Date:03/28/2022 11:30:00 AM Scheduled Provider:ARCELIA ALVARADO MD Location:PM Office Appointment Type:PM OV Future Scheduled TestsThyroid Stimulating Hormone 01/07/21A1C Hemoglobin 01/07/21Complete Blood Count 01/07/21Lipid Profile 01/07/21Complete Metabolic Panel 01/07/21 [facility] Evaluation + Plan note Future Appointments Appointment Date:03/28/2022 11:30:00 AM Scheduled Provider:ARCELIA ALVARADO MD Location:PM Office Appointment Type:PM OV [facility] Evaluation + Plan note Future Appointments Appointment Date:05/21/2023 11:00:00 AM Scheduled Provider:NATHALIA SAN Location:[facility] Appointment Type:PC OV Future Scheduled TestsBD Bone Density DEXA Axial Skeleton 11/20/22 [facility] Evaluation + Plan note Future Appointments Appointment Date:05/21/2023 11:00:00 AM Scheduled Provider:NATHALIA SAN Location:[facility] Appointment Type:PC OV [facility] Evaluation + Plan note Future Appointments Appointment Date:02/20/2023 12:00:00 PM Scheduled Provider:ERROL MERAZ Location:PM Office Appointment Type:PM OV MARIYA ZALDIVAR Appointment Date:05/21/2023 11:00:00 AM Scheduled Provider:NATHALIA SAN Location:[facility] Appointment Type: OV [facility] Evaluation + Plan note Future Appointments Appointment Date:05/21/2023 11:00:00 AM Scheduled Provider:NATHALIA SAN Location:[facility] Appointment Type:PC OV Appointment Date:05/29/2023 12:00:00 PM Scheduled Provider:GRACY CORNELL APRN-TRICIA Location:[facility] PM Appointment Type:PM OV Future Scheduled TestsMA Mammo Screening Bilateral w/ Gaston 02/11/23 [facility] Evaluation + Plan note Future Appointments Appointment Date:08/06/2023 11:30:00 AM Scheduled Provider:NATHALIA SAN Location:[facility] Appointment Type:PC OV Future Scheduled TestsMA Mammo Screening Bilateral w/ Gaston 02/11/23 [facility] Evaluation + Plan note Future Appointments Appointment Date:09/25/2023 01:00:00 PM Scheduled Provider:GRACIELA MORSE APRN-TRICIA Location:[facility] Appointment Type:PC OV House Call Future Scheduled TestsMA Mammo Screening Bilateral w/ Gaston 02/11/23 [facility] Hospital course Narrative No data available for this section [facility] Hospital Discharge instructions No data available for this section [facility] Note CALI RICHARDS MD: SIGN, VERIFY Event Display: EKG [ED AOH] - CV Authored Date: [facility] Progress note No data available for this section [facility] Summary Purpose Family History No Family History Records Found Advance Directives No Advanced Directives Records Found Additional Source Comments Care Team (unrecognized sect ion and content) Personnel Name: NATHALIA SAN Address: [address] [place] [address] Name: Alyssa Erazo Clerbon Alfaro PT Care Team Personnel Name: Alyssa Erazo Clerbon Alfaro PT Position: P3 Scheduling - Clothes Designer Advanced Member Role: Other Name: ERA CORCORAN MD Member Role: Pain Management Address: Address: [address] [place] [address] Pain Management [address] Name: NATHALIA SAN Position: P4 Advanced Bottom Painter Member Role: Primary Care Physician Address: Address: [address] [place] [address] Care Team Related Persons Name: SONDRA GABRIEL Name: ERICA RODRÍGUEZ Name: ERICA RODRÍGUEZ Care Team Personnel Name: Castro Reimbursement Rep Angelina PT Position: P3 Scheduling - Clothes Designer Advanced Member Role: Other Name: ERA CORCORAN MD Member Role: Pain Management Address: Address: [address] [place] [address] Name: NATHALIA SAN CLINICAL EDUCATION SPECIALIST-GARLAND MAKER Position: P4 Advanced Bottom Painter Member Role: Primary Care Physician Address: Address: [address] [place] [address] Care Team Related Persons Name: SONDRA GABRIEL Name: ERICA RODRÍGUEZ Name: ERICA RODRÍGUEZ Care Team Personnel Name: Alyssa Erazo Clerk Angelina PT Position: P3 Scheduling - Clothes Designer Advanced Member Role: Other Name: ERA CORCORAN MD Member Role: Pain Management Address: Address: [address] [place] [address] Name: NATHALIA SAN CLINICAL EDUCATION SPECIALIST-GARLAND MAKER Position: P4 Advanced Bottom Painter Member Role: Primary Care Physician Address: Address: [address] [place] [address] Care Team Related Persons Name: SONDRA GABRIEL Name: ERICA RODRÍGUEZ Name: ERICA RODRÍGUEZ Care Team Personnel Name: Alyssa Erazo Clerk Angelina PT Position: P3 Scheduling - Clothes Designer Advanced Member Role: Other Name: ERA CORCORAN MD Member Role: Pain Management Address: Address: [address] [place] [address] Name: NATHALIA SAN CLINICAL EDUCATION SPECIALIST-GARLAND MAKER Position: P4 Advanced Bottom Painter Member Role: Primary Care Physician Address: Address: [address] [place] [address] Care Team Related Persons Name: SONDRA GABRIEL Name: ERICA RODRÍGUEZ Name: ERICA RODRÍGUEZ Care Team Personnel Name: Castro Reimbursement Rep Angelina PT Position: P3 Scheduling - Clothes Designer Advanced Member Role: Other Name: ERA CORCORAN MD Member Role: Pain Management Address: Address: [address] [place] [address] [address] Name: NATHALIA SAN APRN-GARLAND MAKER Position: P4 Advanced Bottom Painter Member Role: Primary Care Physician Address: Address: [address] Care Team Related Persons Name: SONDRA GABRIEL Name: ERICA RODRÍGUEZ Name: ERICA RODRÍGUEZ Care Team Personnel Name: Alyssa Erazork Angelina PT Position: P3 Scheduling - Clothes Designer Advanced Member Role: Other Name: ERA CORCORAN MD Member Role: Pain Management Address: Address: [address] [place] [address] [address] Name: NATHALIA SAN APRN-GARLAND MAKER Position: P4 Advanced Bottom Painter Member Role: Primary Care Physician Address: Address: [address] [place] [address] Care Team Related Persons Name: SONDRA GABRIEL Name: ERICA RODRÍGUEZ Name: ERICA RODRÍGUEZ Care Team Personnel Name: Alyssa Erazork Angelina PT Position: P3 Scheduling - Clothes Designer Advanced Member Role: Other Name: ERA CORCORAN MD Member Role: Pain Management Address: Address: [address] [place] [address] [address] Name: NATHALIA SAN APRN-GARLAND MAKER Position: P4 Advanced Bottom Painter Member Role: Primary Care Physician Address: Address: [address] [place] [address] Care Team Related Persons Name: SONDRA GABRIEL Name: ERICA RODRÍGUEZ Name: ERICA RODRÍGUEZ Care Team (unrecognized sect ion and content) Care Team Personnel Name: Alyssa Erazork Angelina PT Position: P3 Scheduling - Clothes Designer Advanced Member Role: Other Name: ERA CORCOARN MD Position: P4 Physician - General Surgery Med Service: [facility] Pain Management Member Role: Pain Management Address: Address: [address] [place] [address] Pain Management [place], [place] [id number] [place] [address] Name: NATHALIA SAN APRN-GARLAND MAKER Position: P4 Advanced Practice Nurse Med Service: Employed Provider Member Role: Primary Care Physician Address: Address: [address] [place] [address] Care Team Related Persons Name: SONDRA GABRIEL Name: ERICA RODRÍGUEZ Name: ERICA RODRÍGUEZ Care Team Personnel Name: Alyssa Erazo Clerbon Alfaro PT Position: P3 Scheduling - Clothes Designer Advanced Member Role: Other Name: ERA CORCORNA MD Position: P4 Physician - General Surgery Med Service: [facility] Pain Management Member Role: Pain Management Address: Address: [address] [place] [address] Pain Management [address] Name: NATHALIA SAN CLINICAL EDUCATION SPECIALIST-GARLAND MAKER Position: P4 Advanced Practice Nurse Med Service: Employed Provider Member Role: Primary Care Physician Address: Address: [address] [place] [address] Care Team Related Persons Name: SONDRA GABRIEL Name: ERICA RODRÍGUEZ Name: ERICA RODRÍGUEZ INFORMATION SOURCE (unrecogn ized section and content) FOR RECORDS PERTAINING TO PATIENTS WHO ARE OR HAVE BEEN ENROLLED IN A CHEMICAL DEPENDENCY/SUBSTANCEABUSE PROGRAM, SOME INFORMATION MAY BE OMITTED. This clinical summary was aggregated from multiple sources. Caution should be exercised in using it in the provision of clinical care. This summary normalizes information from multiple sources, and as a consequence, information in this document may materially change the coding, format and clinical context of patient data. In addition, data may be omitted in some cases. CLINICAL DECISIONS SHOULD BE BASED ON THE PRIMARY CLINICAL RECORDS. [facility] [employer] [facility]. provides no warranty or guarantee of the accuracy or completeness of information in this document.
[2023-10-14 12:31] LABS: Amphetamine Urine VISTA NEGATIVE (<1000 ng/mL); Barbiturate Urine VISTA NEGATIVE (< 200 ng/mL); Benzodiazepine Urine VISTA NEGATIVE (< 200 ng/mL); Cocaine Urine VISTA NEGATIVE (< 300 ng/mL); Ecstacy Urine VISTA NEGATIVE (< 500 ng/mL); Methadone Urine VISTA NEGATIVE (< 300 ng/mL); PCP Urine VISTA NEGATIVE (< 25 ng/mL); THC Urine VISTA NEGATIVE (< 50 ng/mL); Vista UDS pH Range 5
== END | disposition home or self-care (01) ==
PROVIDERS: PCP Nurse Practitioner Primary Care; Referring Provider Anesthesiology Pain Medicine; Visit Provider Anesthesiology Pain Medicine
DX: F11.20 Opioid dependence, uncomplicated (principal)
CPT/HCPCS: 80307

== ENCOUNTER → 2023-11-25 | Outpatient (CLI) | payer MEDICARE, SELFPAY ==
--- NOTE | 2023-11-25 14:30 | MRI_ITS ---
HISTORY: CERVICAL RADICULOPATHY. TECHNIQUE: Multiplanar and multisequence MR images of the cervical spine were obtained without contrast. 232 images. COMPARISON: XR 07/09/2023. FINDINGS: VERTEBRAE: Vertebral body heights maintained. Mild degenerative endplate changes at multiple levels. No other significant bone marrow signal abnormality. VERTEBRAL ALIGNMENT: No anterior or posterior subluxation. SPINAL CORD: Cervical cord signal and morphology within normal limits. SOFT TISSUES: No prevertebral fluid collection. Sphenoid sinus mucosal thickening present. INTERVERTEBRAL DISCS: C2-3: Mild disc bulge with uncovertebral and facet arthropathy resulting in mild central canal stenosis. No significant foraminal narrowing. C3-4: Mild disc bulge with uncovertebral and facet arthropathy resulting in mild central canal stenosis. No significant foraminal narrowing. C4-5, C5-6: Posterior disc bulge osteophyte complexes with uncovertebral and facet arthropathy resulting in mild central canal stenosis and bilateral foraminal narrowing. C6-7, C7-T1: No significant posterior disc protrusion, central canal stenosis, or foraminal narrowing. MRI/Spine Cervical (Routine) IMPRESSION: Mild multilevel degenerative disc disease of the cervical spine as above. Electronically Signed: Zo Ramos MD at 15:49 EDT ,
== END | disposition home or self-care (01) ==
PROVIDERS: PCP Nurse Practitioner Primary Care; Referring Provider Anesthesiology Pain Medicine; Visit Provider Anesthesiology Pain Medicine
DX: M54.12 Radiculopathy, cervical region (principal)
CPT/HCPCS: 72141

== ENCOUNTER → 2024-02-03 | Outpatient (CLI) | payer MEDICARE, SELFPAY ==
--- NOTE | 2024-02-03 13:26 | RAD_ITS ---
EXAM: XR LEFT SHOULDER COMPLETE, 2 OR MORE VIEWS CLINICAL INDICATION: L SHOULDER PAIN TECHNIQUE: Two or more views of the left shoulder. COMPARISON: No relevant prior studies available. FINDINGS: BONES/JOINTS: Moderate glenohumeral joint arthrosis and mild acromioclavicular joint arthrosis. Degenerative changes in the spine. No acute fracture. No subluxation. Normal alignment. No sclerotic or destructive changes observed. SOFT TISSUES: No significant abnormality. No soft tissue swelling or gas. No radiopaque foreign body. RAD/Shoulder min 2 Views IMPRESSION: Moderate glenohumeral joint arthrosis and mild acromioclavicular joint arthrosis. No acute osseous findings. Electronically Signed: Frandy Qiu DO at 20:28 EDT ,
== END | disposition home or self-care (01) ==
LOC: RAD 13:22
PROVIDERS: PCP Nurse Practitioner Primary Care; Referring Provider Anesthesiology Pain Medicine; Visit Provider Anesthesiology Pain Medicine
DX: M25.512 Pain in left shoulder (principal)
CPT/HCPCS: 73030

== ENCOUNTER → 2024-02-19 | Outpatient (CLI) | payer MEDICARE, SELFPAY ==
[2024-02-19 16:36] LABS: Amphetamine Urine VISTA NEGATIVE (<1000 ng/mL); Vista UDS pH Range 5
[2024-02-19 16:37] LABS: Barbiturate Urine VISTA NEGATIVE (< 200 ng/mL); Benzodiazepine Urine VISTA NEGATIVE (< 200 ng/mL); Cocaine Urine VISTA NEGATIVE (< 300 ng/mL); Ecstacy Urine VISTA NEGATIVE (< 500 ng/mL); Methadone Urine VISTA NEGATIVE (< 300 ng/mL); PCP Urine VISTA NEGATIVE (< 25 ng/mL); THC Urine VISTA NEGATIVE (< 50 ng/mL)
== END | disposition home or self-care (01) ==
PROVIDERS: PCP Nurse Practitioner Primary Care; Referring Provider Anesthesiology Pain Medicine; Visit Provider Anesthesiology Pain Medicine
DX: F11.20 Opioid dependence, uncomplicated (principal)
CPT/HCPCS: 80307

== ENCOUNTER → 2024-04-21 | Outpatient (CLI) | payer MEDICARE, SELFPAY ==
--- NOTE | 2024-04-21 11:31 | RAD_ITS ---
EXAM: XR LUMBOSACRAL SPINE, 2 OR 3 VIEWS CLINICAL INDICATION: FALL TECHNIQUE: Frontal and lateral views of the lumbar spine and sacrum. COMPARISON: No relevant prior studies available. FINDINGS: VERTEBRAE: Unremarkable. Preserved vertebral body height. No fracture. No spondylolisthesis. Preservation of the normal lumbar lordosis. No significant facet arthropathy. DISC SPACES: No acute findings. Disc spaces are maintained. GASTROINTESTINAL TRACT: Unremarkable as visualized. Included bowel gas pattern is non-obstructive. RAD/Lumbar Spine 2 or 3 Views IMPRESSION: No evidence of lumbar spinal fracture or spondylolisthesis. Electronically Signed: Mitul Santos MD at 23:53 EDT ,
== END | disposition home or self-care (01) ==
LOC: RAD 11:27
PROVIDERS: PCP Nurse Practitioner Primary Care; Referring Provider Anesthesiology Pain Medicine; Visit Provider Anesthesiology Pain Medicine
DX: T14.90XA Injury, unspecified, initial encounter (principal); W19.XXXA Unspecified fall, initial encounter
CPT/HCPCS: 72100

== ENCOUNTER → 2024-07-22 | Outpatient (CLI) | payer MEDICARE, SELFPAY ==
--- NOTE | 2024-07-22 11:21 | RAD_ITS ---
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 COMPARISON: 07/09/2023 FINDINGS: VERTEBRAE: See below. DISC SPACES: There is degenerative change with disc space narrowing in the upper mid thoracic spine. There are flowing anterior osteophytes present. There is mild accentuated kyphosis in the upper thoracic spine. RAD/Thoracic Spine 3 Views IMPRESSION: Multilevel degenerative change with disc space narrowing and osteophyte formation. There has been no change from the reference exam. There is no acute osseous abnormality. Electronically Signed: Mitul Santos MD at 9:53 EST ,
== END | disposition home or self-care (01) ==
LOC: RAD 11:13
PROVIDERS: PCP Nurse Practitioner Primary Care; Referring Provider Anesthesiology Pain Medicine; Visit Provider Anesthesiology Pain Medicine
DX: M47.14 Other spondylosis with myelopathy, thoracic region (principal)
CPT/HCPCS: 72072

== ENCOUNTER 2024-08-28 12:33 | Emergency (ER) | payer MEDICARE, SELFPAY ==
[2024-08-28 12:36] VITALS: BP 170/64; PULSE 61; RESP 18; TEMP 36.4; O2SAT 99
--- NOTE | 2024-08-28 14:00 | CT_ITS ---
INDICATION: INJURY EXAMINATION: CT CERVICAL SPINE - CT Spine Cervical W/O Contrast Injection TECHNIQUE: Helically acquired images were obtained of the cervical spine. 2D reformatted images were reviewed. The protocol utilizes one or more of the following dose reduction techniques: automated exposure control, adjustment of mA and/or kV according to patient size,and/or use of iterative reconstruction technique. IV Contrast dosage and agent: None. RADIATION DOSAGE (If Supplied By Facility): CTDIvol = ( 16.33 ) mGy, DLP = ( 304.75 ) mGycm COMPARISON: No relevant prior comparison study available FINDINGS: VERTEBRAE: No fracture or traumatic subluxation. Demineralization of the osseous structures. Normal alignment. Normal craniocervical junction and cervicothoracic junction. DISCS and SPINAL CANAL: Narrowing of C4-C5 disc space. Small posterior lateral degenerative spurs. Mild endplate spondylosis. No critical bony spinal canal stenosis. NECK SOFT TISSUES: No prevertebral soft tissue swelling. There is no cervical adenopathy. LUNG APICES: Clear. CT/Spine Cervical without Contras IMPRESSION: No evidence of acute cervical spinal fracture or spondylolisthesis. Electronically Signed: Vinny Palencia MD at 14:56 EST ,
--- NOTE | 2024-08-28 14:00 | CT_ITS ---
INDICATION: INJURY EXAMINATION: CT BRAIN - CT Head or Brain W/O Contrast Injection TECHNIQUE: Multiple axial images were obtained of the head without intravenous contrast. The protocol utilizes one or more of the following dose reduction techniques: automated exposure control, adjustment of mA and/or kV according to patient size,and/or use of iterative reconstruction technique. IV Contrast dosage and agent: None. RADIATION DOSAGE (If Supplied By Facility): CTDIvol = ( 44.99 ) mGy, DLP = ( 796.11 ) mGycm COMPARISON: No relevant prior comparison study available FINDINGS: BRAIN PARENCHYMA: No intra- or extra-axial hemorrhage. Old lacunar infarct in the left thalamus. Probable small old lacunar infarct in the basal ganglia. Periventricular deep white matter changes likely due to chronic microvascular disease. Atherosclerotic calcifications of the cavernous internal carotid arteries. No intracranial mass or mass effect. There is preservation of the martinez/white matter interface. Posterior fossa structures are unremarkable. CSF SPACES: Mild diffuse atrophy. Cavum vergae which is a normal variant. No hydrocephalus. Basal cisterns are patent. CALVARIUM, SKULL BASE, PARANASAL SINUSES AND MASTOID AIR CELLS: Mucosal thickening of the maxillary sinuses. No discrete lytic or blastic abnormalities. ORBITS: Both globes, extraocular muscles, optic nerves and retrobulbar fat appear unremarkable. CT/Brain/Head without Contrast IMPRESSION: No acute intracranial process. Electronically Signed: Vinny Palencia MD at 14:53 EST ,
[2024-08-28 14:33] VITALS: PULSE 88; RESP 18; O2SAT 100
--- NOTE | 2024-08-28 15:15 | EX.ED.DYSGE1 ---
HPI <NADEEM Castanon - Last Filed: 08/28/24 15:43> History of Present Illness Chief Complaint: Head Injury Narrative Narrative: 78-year-old female tripped at a restaurant and fell striking the back of her head on tile floor. She has a small laceration. No loss of consciousness, no blood thinners. She is able to stand and walk and was brought in for evaluation by a family member. She denies headache, neck pain, visual changes, or nausea or vomiting. No other injuries. PFSH <NADEEM Castanon - Last Filed: 08/28/24 15:43> PFSH Medical History no medical history Allergy/AdvReac Type Severity Reaction Status Date / Time azithromycin Allergy PT UNSURE Verified 08/28/24 12:35 OF REACTION Family History no significant family his Surgical History no surgical history Social History Smoking Status: Never smoker ROS <NADEEM Castanon Last Filed: 08/28/24 15:43> ROS ED ROS Narrative Eyes: Negative for visual change. GI: Negative for nausea, vomiting. Neuro: Negative for headache, motor/sensory dysfunction. Musc: Negative for joint pain. EXAM <NADEEM Castanon Last Filed: 08/28/24 15:43> Physical Exam Narrative Exam Narrative: CONST: Patient sitting in no acute distress. EYES: Normal inspection. PERRL, EOMI. ENT: 1 cm laceration right occipital scalp with no active bleeding. No deformity or crepitus, no hematoma. No raccoon eyes or Martinez sign, no nasal septal hematoma or epistaxis, no hemotympanum, no CSF otorrhea or rhinorrhea. NECK: Normal inspection. No midline tenderness or step-offs. RESP: No respiratory distress, CTAB. CVS: Regular rate and rhythm, no murmur, no gallop. Back: Normal inspection, no midline tenderness. SKIN: Color normal, no rash, warm, dry, intact. EXTREMITIES: Normal appearance, no pedal edema. NEURO: Alert and answering questions appropriately. PSYCH: Normal affect. Const Vital Signs: 08/28/24 12:36 08/28/24 14:33 08/28/24 15:34 Temperature 97.6 F L Temperature Source Temporal Pulse Rate 61 88 Respiratory Rate 18 18 Respiratory Effort Normal Non-Labored Respiratory Depth Normal Respiratory Pattern Normal Blood Pressure 170/64 H Blood Pressure Mean 99 Pulse Ox 99 100 99 Oxygen Delivery Method Room Air Room Air <Dr. Avinash Hassan DO - Last Filed: 08/28/24 15:38> Physical Exam Const Vital Signs: 08/28/24 12:36 08/28/24 14:33 08/28/24 15:34 Temperature 97.6 F L Temperature Source Temporal Pulse Rate 61 88 Respiratory Rate 18 18 Respiratory Effort Normal Non-Labored Respiratory Depth Normal Respiratory Pattern Normal Blood Pressure 170/64 H Blood Pressure Mean 99 Pulse Ox 99 100 99 Oxygen Delivery Method Room Air Room Air MDM <NADEEM Castanon - Last Filed: 08/28/24 15:43> [facility] MDM Narrative Medical decision making narrative: History gathered from: Patient, daughter Differential: Scalp laceration, skull fracture, intracranial hemorrhage Patient had a mechanical fall with closed head injury. No LOC. No thinners. She is awake and alert, GCS 15, stable vital signs. She has a 1 cm right occipital scalp laceration without signs of basilar skull fracture. No neck tenderness. Neurologically intact and no other injuries on exam. CT brain and cervical spine are negative. Wound was cleansed and closed with 2 eunice and tetanus update given. I discussed head injury return precautions and she was discharged in stable condition. Radiography Diagnostic Testing: Clinical Impression(s) from Imaging Studies Brain CT 08/28/24 14:00 IMPRESSION: No acute intracranial process. Electronically Signed: Vinny Palencia MD at 14:53 EST Reading Location ID and State: [facility] / [place] Tel , Service support , Cervical Spine CT 08/28/24 14:00 IMPRESSION: No evidence of acute cervical spinal fracture or spondylolisthesis. Electronically Signed: Vinny Palencia MD at 14:56 EST , <Dr. Avinash Hassan, DO - Last Filed: 08/28/24 15:38> [facility] Radiography Diagnostic Testing: Clinical Impression(s) from Imaging Studies Brain CT 08/28/24 14:00 IMPRESSION: No acute intracranial process. Electronically Signed: Vinny Palencia MD at 14:53 EST , Cervical Spine CT 08/28/24 14:00 IMPRESSION: No evidence of acute cervical spinal fracture or spondylolisthesis. Electronically Signed: Vinny Palencia MD at 14:56 EST , Treatment and Re-Evaluation :: I have personally performed a face to face assessment of the patient and have reviewed the ILAN Note. I performed a substantive portion of the visit including all aspects of the following. My alfonso findings include: History is 78-year-old female slipped and fell on the ice resulting in scalp laceration. No reported loss of consciousness. Tetanus not up-to-date. She notes slight headache. She is not on blood thinners. Exam is there is approximately 1 cm linear gaping laceration to the right occiput. There is no palpable bony depressions. No active bleeding. Medical Decison Making CT of the brain and cervical spine were obtained and were negative for intracranial hemorrhage or for fracture. Wound was managed by physician assistant chief nursing officer and closed with eunice. Wound care discussed with patient eunice will need to be removed in 5 to 7 days. Monitor for worsening symptoms return if needed Procedures <NADEEM Castanon - Last Filed: 08/28/24 15:43> Lacerations Right occipital scalp: Length: 1 cm Depth: Sub Q Shape: Linear Prep: Shlucita-Clens Laceration repair: Irrigated Number of Sutures/Remer: 2 Discharge Plan Triage Chief Complaint: Head Injury ED Midlevel Provider: Angelina Strong ED Provider: Avinash Hassan Dx/Rx/DC Orders Clinical Impression: Closed head injury without loss of consciousness, Laceration of occipital scalp Instructions: ED Head Injury (Adult), ED Laceration Scalp Stitches or Eunice Primary Care Provider: Vikki Thomas NP Referrals: [place],Vikki ACADEMIC SERVICES PROFESSIONAL, ACADEMIC SERVICES PROFESSIONAL-C [Primary Care Provider] - Activity Restrictions/Additional Instructions: 2 eunice were placed that need removed in 1 week. Return if you develop any worsening symptoms like severe headache, vision changes, vomiting or confusion. Print Language: [place] Disposition Disposition: Home, Self Care Discharge Date/Time: 08/28/24 15:43
[2024-08-28] MEDS: Diphth,Pertuss(Acell),Tet Vac 0.5 ML Vial IM (15:31)
[2024-08-28 15:34] VITALS: O2SAT 99
== END 2024-08-28 15:43 | disposition home or self-care (01) ==
LOC: ED 15:41
PROVIDERS: Emergency Provider Emergency Medicine; PCP Nurse Practitioner Primary Care; Referring Provider Emergency Medicine; Visit Provider Emergency Medicine
DX: S01.01XA Laceration without foreign body of scalp, initial encounter (principal); W01.198A Fall on same level from slipping, tripping and stumbling with subsequent striking against other object, initial encounter; Y92.511 Restaurant or cafe as the place of occurrence of the external cause; Z23 Encounter for immunization
CPT/HCPCS: 12001; 70450; 72125; 90715; 99282

== ENCOUNTER → 2024-12-31 | Outpatient (CLI) | payer MEDICARE, SELFPAY ==
[2024-12-31 19:08] LABS: Amphetamine Urine NEGATIVE (<1000 ng/mL); Barbiturate Urine NEGATIVE (< 200 ng/mL); Benzodiazepine Urine NEGATIVE (< 200 ng/mL); Buprenorphine Urine NEGATIVE (< 200 ng/mL); Cocaine Urine NEGATIVE (< 300 ng/mL); Fentanyl, Urine NEGATIVE; Methadone Urine NEGATIVE (< 300 ng/mL); Opiates Urine PRESUMPTIVE POSITIVE (< 300 ng/mL); Oxycodone, Urine NEGATIVE (< 100 ng/mL); PCP Urine NEGATIVE (< 25 ng/mL); THC Urine NEGATIVE (< 50 ng/mL)
== END | disposition home or self-care (01) ==
LOC: LAB 15:21
PROVIDERS: PCP Nurse Practitioner Primary Care; Referring Provider Anesthesiology Pain Medicine; Visit Provider Anesthesiology Pain Medicine
DX: F11.20 Opioid dependence, uncomplicated (principal)
CPT/HCPCS: 80307

== ENCOUNTER → 2025-02-10 | Outpatient (CLI) | payer MEDICARE, SELFPAY ==
[2025-02-10 16:49] LABS: Amphetamine Urine NEGATIVE (<1000 ng/mL); Barbiturate Urine NEGATIVE (< 200 ng/mL); Benzodiazepine Urine NEGATIVE (< 200 ng/mL); Buprenorphine Urine NEGATIVE (< 200 ng/mL); Cocaine Urine NEGATIVE (< 300 ng/mL); Fentanyl, Urine NEGATIVE; Methadone Urine NEGATIVE (< 300 ng/mL); Opiates Urine NEGATIVE (< 300 ng/mL); Oxycodone, Urine NEGATIVE (< 100 ng/mL); PCP Urine NEGATIVE (< 25 ng/mL); THC Urine NEGATIVE (< 50 ng/mL)
== END | disposition home or self-care (01) ==
LOC: LAB 12:54
PROVIDERS: PCP Nurse Practitioner Primary Care; Referring Provider Anesthesiology Pain Medicine; Visit Provider Anesthesiology Pain Medicine
DX: F11.20 Opioid dependence, uncomplicated (principal)
CPT/HCPCS: 80307

== ENCOUNTER 2025-02-18 11:07 | Outpatient (CLI) | payer MEDICARE, SELFPAY ==
--- NOTE | 2025-02-18 11:15 | RAD_ITS ---
EXAM: XR Left Shoulder Complete, 2 or More Views CLINICAL INDICATION: FALL TECHNIQUE: Two or more views of the left shoulder. COMPARISON: No relevant prior studies available. FINDINGS: BONES/JOINTS: Mild degenerative change of the acromioclavicular glenohumeral joints. No acute fracture. No dislocation. SOFT TISSUES: Soft tissue swelling. RAD/Shoulder min 2 Views IMPRESSION: Degenerative changes as above. Reading Location: [facility]
== END 2025-02-18 23:59 | disposition home or self-care (01) ==
LOC: RAD 11:11
PROVIDERS: PCP Nurse Practitioner Primary Care; Referring Provider Anesthesiology Pain Medicine; Visit Provider Anesthesiology Pain Medicine
DX: M19.012 Primary osteoarthritis, left shoulder (principal); W19.XXXA Unspecified fall, initial encounter
CPT/HCPCS: 73030